=== PATIENT | male | born 1985 | race Two or more races ===

== ENCOUNTER 2019-12-14 18:48 | Emergency (ER) | payer OTHER ==
[~2019-12-14] VITALS: Ht 185.4 cm; Wt 85.5 kg
--- NOTE | 2019-12-14 19:53 | NUR ---
Pt presents to ed c/o "im pretty sure i od'd today." States took 1.5 roxicodone, 30 mg ER, this am and 1.5 more of same dose at 1500 tonight. States snorted them tonight and found pt cyanotic around mouth and borderline apneic breathing. [facility] arrived and gave 1 round of narcan @1700. Pt roused from medication admin and has been AA+Ox4 since medication admin. Pt a+ox4 at this time. VSS.
[2019-12-14 21:58] VITALS: BP 127/64
== END 2019-12-14 22:25 | disposition home or self-care (01) ==
LOC: ED 22:15
DX: T65.91XA Toxic effect of unspecified substance, accidental (unintentional), initial encounter (principal); R42 Dizziness and giddiness; R06.02 Shortness of breath; I45.9 Conduction disorder, unspecified; Y92.89 Other specified places as the place of occurrence of the external cause
CPT/HCPCS: 93005; 99283